=== PATIENT | female | born 1990 | race Caucasian/White ===

== ENCOUNTER 2022-01-18 12:06 | Observation (INO) | payer BC ==
--- OUTSIDE RECORDS SUMMARY | 2022-01-18 12:09 | XMS REPORT | Continuity of Care Document ---
:1990 Author Organization [facility] t Address [address] [place] [address] [address] [place] [address] Care Team Providers Name Role Phone Trinidad KAPLAN, Dany Villatoro Primary Care Physician [phone] Christine Chase MD Attending Clinician Alondra Contreras MA Attending Clinician Unavailable Chloe Beavers MA Attending Clinician Unavailable Jeanne KAPLAN, Shavonne Key Attending Clinician Partha RODRIGUEZ, Bartolo Attending Clinician Unavailable Doctor Unassigned, [place] Attending Clinician Unavailable [facility], [facility] Attending Clinician Unavailable MARIA A GONG Attending Clinician Unavailable Maria A Crenshaw Attending Clinician João Woody MD Attending Clinician JOÃO WOODY Attending Clinician Unavailable Payers Payer Name Policy Type Policy Number Effective Date Expiration Date [facility] - [id number] 2019 00:00:00 OUT OF STATE Problems Condition Condition Condition Status Onset Resolution Last Treating Co mments Source Name Details Category Date Date Treatment Clinician Date No known No known Disease Metho di active active st problems problems Hospit a l Allergies, Adverse Reactions, Alerts Allergy Allergy Status Severity Reaction(s) Onset Inactive Treating Comm ents Source Name Type Date Date Clinician NO KNOWN Drug Active Univers ALLERGIE Class ity of S [facility] Family History Family Member Diagnosis Comments Start Date Stop Date Source Natural father Cancer [facility] Natural father Diabetes [facility] Natural mother Diabetes [facility] Natural sister Diabetes [facility] Social History Social Habit Start Date Stop Date Quantity Comments Source Alcohol intake 2020-10-15 2020-10-15 Current [facility] 00:00:00 00:00:00 non-drinker of Hospital alcohol (finding) Tobacco use and 2016-09-15 2016-09-15 Smokeless tobacco [facility] exposure 00:00:00 00:00:00 non-user Hospital Sex Assigned At [birth year] [facility] 00:[facility]00 [facility] Smoking Status Start Date Stop Date Source Never smoked tobacco [facility] Medications Ordered Filled Start Stop Current Ordering Indication Dosage Frequency Signature Comments Components Source Medication Medication Date Date Medication? Clinician (SIG) Name Name metroNIDAZO 2020- No 500mg Q.5D Take 1 Me thodi LE (FlagyL) 5-25 06-[address] 500 MG 00:00: 04:59 (500 mg Hospita tablet 00 :00 total) by l mouth 2 (two) times a day for 7 days. drospirenon Yes [id number] 1{tbl} QD Take 1 Methodi e-ethinyl 5-[address] estradioL 00:00: mouth Hospita (JUAN DAVID) 00 daily. l 3-0.02 mg per tablet drospirenon 2020- No [id number] 1{tbl} QD Take 1 Methodi e-ethinyl 4-29 05-[address] estradioL 00:00: 00:00 mouth Hospit a (JUAN DAVID) 00 :00 daily. l 3-0.02 mg per tablet acetaminoph Yes TAKE TWO Me thodi en-caff-dih 27 (2) st ydrocod 00:00: CAPSULE(S) Hosp miky 320.5-30-16 00 BY MOUTH l mg capsule FOUR TIMES A DAY NEEDED. WAIT AT LEAST 4 HOURS BETWEEN DOSES. hydrOXYzine 2020- No 25mg Q6H Take 1 Met hodi (ATARAX) 25 4- 05-02 tablet (25 s t MG tablet 00:00: 04:59 mg total) Ho spita 00 :00 by mouth l every 6 (six) hours as needed for itching or allergies for up to 30 days. valACYclovi 2020- No 1000mg Q8H Take 1 M ethodi r (VALTREX) 08-[address] 1000 MG 00:00: 04:59 (1,000 mg Hosp miky tablet 00 :00 total) by l mouth every 8 (eight) hours for 7 days. methylPREDN 2020- No follow Met hodi ISolone 08-[address] (MEDROL 00:00: 04:59 directions Hos vince DOSEPAK) 4 00 :00 l mg tablet amitriptyli Yes 100mg QD Take 100 M ethodi ne (ELAVIL) 3-[address] 100 MG 00:00: mouth Hospita tablet 00 daily. l ondansetron Yes 4mg Take 4 mg M ethodi ODT 3-[address] (ZOFRAN-ODT 00:00: Hospit a ) 4 MG 00 l disintegrat ing tablet drospirenon 2020- No [id number] TAKE 1 Methodi e-ethinyl 06-[address] estradioL 00:00: 00:00 DAILY Hospit a (JUAN DAVID) 00 :00 l 3-0.02 mg per tablet clotrimazol 2020- No [id number] Q.5D Apply Methodi e-betametha 07-23-[address] sone 00:00: 05:59 2 (two) Hospita (LOTRISONE) 00 :00 times a l 1-0.05 % day. cream amitriptyli 2017-05- No 25mg Q.5D Take 25 mg Methodi ne (ELAVIL) 09-24 by mouth 2 s t 25 MG 00:00: 00:00 (two) Hospita tablet 00 :00 times a l day. esomeprazol 2017-05 Yes Method i e (NexIUM) 2-10 st 40 MG 00:00: Hospita capsule 00 l Immunizations Ordered Immunization Filled Immunization Date Status Commen ts Source Name Name Pfizer COVID-19 Vaccine Pfizer COVID-19 2021-04-01 Completed Vaccine 00:00:00 Pfizer COVID-19 Vaccine Pfizer COVID-19 2021-03-11 Completed Vaccine 00:00:00 Vital Signs Vital Name Observation Time Observation Value Comments Source Systolic blood 2020-10-15 20:19:00 124 mm[Hg] [facility] pressure Diastolic blood 2020-10-15 20:19:00 81 mm[Hg] [facility] pressure Heart rate 2020-10-15 20:19:00 76 /min [facility] Body height 2020-10-15 20:19:00 170.2 cm [facility] Body weight 2020-10-15 20:19:00 72.576 kg [facility] BMI 2020-10-15 20:19:00 25.06 kg/m2 [facility] Body temperature 2020-08-27 22:44:10 37 [facility] Respiratory rate 2020-08-27 22:44:10 14 /min [facility] Oxygen saturation in 2020-08-27 22:44:10 99 /min [facility] Arterial blood by Pulse oximetry Procedures Procedure Date / Time Performed Performing Clinician Sourc e THINPREP TIS PAP RFX 2020-10-15 20:44:00 Christine Chase [facility] HPV Plan of Care Planned Activity Planned Date Details Comments Source Future Scheduled 2021-03-31 Screening for [facility] Test 21:06:09 malignant neoplasm of cervix (procedure) [code = 719961289] Future Scheduled 2021-03-31 COVID-19 VACCINE [facility] Test 21:06:09 (1) [code = COVID-19 VACCINE (1)] Future Scheduled 2021-03-31 Hepatitis C [facility] ospital Test 21:06:09 screening (procedure) [code = 986843518] Future Scheduled 2021-03-31 INFLUENZA VACCINE Method [facility] Test 21:06:09 [code = INFLUENZA VACCINE] Encounters Start End Encounter Admission Attending Care Care Encounter Source Date/Time Date/Time Type Type Clinicians Facility Department ID 2021-04-01 2021-04-01 Outpatient GCCOVIDV GCCOVIDV [id number] GCCOVID 00:00:00 00:00:00 V 2021-03-11 2021-03-11 Outpatient GCCOVIDV GCCOVIDV [id number] [facility]OVID 00:00:00 00:00:00 V 2020-12-14 2020-12-14 Telephone Rena, 1.2.840.1 [id number] Methodi 00:00:00 00:00:[address] 3.430.2.7 Hospit a .3.814523 l .8 2020-10-20 2020-10-20 Telephone Alondra Contreras 1.2.840.1 [id number] Methodi 00:00:00 00:00:[address] 3.430.2.7 Hospit a .3.750896 l .8 2020-10-15 2020-10-15 Office Rena, 1.2.840.1 [id number] Methodi 15:17:33 15:53:46 Visit Christine 27908.1.[address] 3.430.2.7 Hospit a .3.083214 l .8 2020-09-24 2020-09-24 Telephone Nimesh, 1.2.840.1 [id number] Methodi 00:00:00 00:00:[address] 3.430.2.7 Hospit a .3.265441 l .8 2020-09-15 2020-09-15 Refill Rena, 1.2.840.1 [id number] Methodi 00:00:00 00:00:[address] 3.430.2.7 Hospit a .3.911205 l .8 2020-08-27 2020-08-27 Emergency [place], 1.2.840.1 [id number] [id number] Methodi 17:46:00 18:48:[address] Yasin [address]run [address]1.[address] 3.430.2.7 Hospit a .3.120524 l .8 2020-08-27 2020-08-27 Travel 1.2.840.1 1.2.066.133 [id number] Methodi 00:00:00 00:00:[address] 3.430.2.7 0.2.7.3.698 Ho spita .3.315513 084.8 l .8 2019-11-16 2019-11-16 Telephone EDWIGE Chavis 1.2.840.114 [id number] 00:00:00 00:00:00 Bartolo NAM 350.1.13.10 HOSPITAL 4.2.7.2.686 [id number] 2019-11-16 2019-11-16 Patient Doctor EDWIGE 1.2.840.114 [id number] 00:00:00 00:00:00 Secure Msg Unassigned, CYRIL 350.1.13.10 [place] [facility] 4.2.7.2.686 [id number] 2019-11-14 2019-11-14 Urgent Pob1, Acute [facility] 1.2.840.114 [id number] 13:49:55 14:36:36 [facility] 350.1.13.10 [place] 4.2.7.2.686 [facility] [id number] nal 044 [address] One 2019-11-14 2019-11-14 Outpatient [facility] [id number] [facility] [place] [facility] 14:00:00 14:00:00 [facility] 2019-11-14 2019-11-14 [facility] 1.2.840.114 [id number] 00:00:00 00:00:00 (Out) [facility] 350.1.13.10 [place] 4.2.7.2.686 [facility] [id number] nal 044 Office [address] 2019-11-11 2019-11-11 Emergency [facility] 1.2.166.769 [id number] 04:22:55 04:58:00 João Beaver 350.1.13.10 [place] 4.2.7.2.686 [place] [id number] 2019-11-11 2019-11-11 Emergency X [facility] [id number] Univers 04:22:55 04:22:55 JOÃO chester [facility] 2019-07-23 2019-07-23 Outpatient [facility] [id number] [address] [place] [address] 00:00:00 00:00:00 CHRISTINE Gallegos2 Metho di st Results Test Description Test Time Test Comments Results Result Sourc e Comments THINPREP TIS PAP 2020-09-27 Clinical Methodis t RFX HPV 5 informationComment: Hospi baby 14:53:00 None given[employer] Electric IIDate of last menstrual periodComment: NONE GIVENThe TechMapVING IIPrev. pap:Comment: NONE GIVENThe Filter-JOAN IIPrev. bx:Comment: NONE GIVENLone Mountain Electric IISourceComment: None givenIgnis Energy DIAGNOSTICS-JOAN IIStatement of adequacyComment: Satisfactory for evaluation.Endocervic al/transformation zone componentpresent.Age and/or menstrual status not provided [employer] IIInterpretation/resu lt:Comment: Negative for intraepithelial lesion or malignancy.[employer] IIInfectionComment: Shift in vaginal stephanie suggestive of bacterialvaginosis. [employer] IICommentComment: This Pap test has been evaluated with computerassisted technology. [employer] IICytotechnologistCom ment: LRW, CT(ASCP)CT screening location: [address] [employer] IICommentComment: EXPLANATORY NOTE: The Pap is a screening test for cervical cancer. It is not a diagnostic test and is subject to false negative and false positive results. It is most reliable when a satisfactory sample, regularly obtained, is submitted with relevant clinical findings and history, and when the Pap result is evaluated along with historic and current clinical information. [employer] IIPerforming Organization Information: Site ID: [id number] Name: [facility] Address: [address] [place] [id number] Director: Dr. Luiz Calles
[2022-01-18 13:27] LABS: Hematocrit 36.2 % (36.0-45.0); Lymphocytes % 13.2 % (15.3-44.8); MCV 80.9 fL (80-100); MPV 8.6 fL (7.6-11.3); RBC Red Blood Cell Count 4.47 M/uL (3.86-4.86)
[2022-01-18 13:42] LABS: Albumin 3.5 g/dL (3.4-5.0); Bilirubin Total 0.4 mg/dL (0.2-1.0); Potassium 3.8 mmol/L (3.5-5.1)
[2022-01-18] MEDS ORDERED: ONDANSETRON 4 MG/2 ML VIAL ONE ×2 (13:51→15:48)
[2022-01-18] MEDS ORDERED: MORPHINE 4 MG/ML SYR ONE (13:51)
[2022-01-18] MEDS ORDERED: NA CHLORIDE 0.9% 1,000 ML ONE ×2 (13:51→14:49)
[2022-01-18 14:06] LABS: Urine Blood Negative (Negative); Urine Glucose Negative (Negative); Urine Protein 1+ (Negative); Urine Specific Gravity 1.025 (1.005-1.030); Urine pH 6.5 (5.0-7.0)
[2022-01-18 14:16] LABS: Blood Morphology Comment NOT SEEN (NOT SEEN); Platelet Estimate ADEQ; Toxic Granulation 1+
--- NOTE | 2022-01-18 14:27 | RAD REPORT ---
EXAM DESCRIPTION: CTAbdomen Pelvis W Contrast - 01/18/2022 2:20 pm CLINICAL HISTORY: Abdominal pain. LLQ abdominal pain COMPARISON: No comparisons TECHNIQUE: Biphasic CT imaging of the abdomen and pelvis was performed with 100 ml non-ionic IV cont rast. All CT scans are performed using dose optimization technique as appropriate and may include automated exposure control or mA/KV adjustment according to patient size. FINDINGS: The lung bases are clear. The liver, spleen, pancreas, adrenal glands and kidneys are within normal limits. No bowel obstruction, free air, free fluid or abscess. The appendix appears enlarged to 14 mm with m ild surrounding inflammation. No evidence of significant lymphadenopathy. No suspicious bony findings. IMPRESSION: Acute appendicitis.
[2022-01-18 14:31] LABS: Urine Specific Gravity/Preg 1.025 (1.005-1.030)
--- NOTE | 2022-01-18 14:40 | ER ---
Nurse's Notes [facility] Name: Meaghan Johnston Age: 31 yrs Sex: Female : 1990 Arrival Date: 01/18/2022 Time: 12:10 Bed 2 Private MD: Diagnosis: Unspecified acute appendicitis Presentation: 01/18 12:19 Chief complaint: Patient states: abdominal pain that woke up pt out of sleep to [facility] \\T\\ 5 LLQ with 7 episodes of vomiting with 3-4 episodes diarrhea ; denies cough/cold/congestion/fever. Coronavirus screen: Vaccine status: Patient reports receiving the 2nd dose of the covid vaccine. Client denies travel out of the [place] in the last 14 days. Ebola Screen: Patient negative for fever greater than or equal to 101.5 degrees Fahrenheit, and additional compatible Ebola Virus Disease symptoms Patient denies exposure to infectious person. Patient denies travel to an Ebola-affected area in the 21 days before illness onset. Initial Sepsis Screen: Does the patient meet any 2 criteria? No. Patient's initial sepsis screen is negative. Does the patient have a suspected source of infection? No. Patient's initial sepsis screen is negative. Risk Assessment: Do you want to hurt yourself or someone else? Patient reports no desire to harm self or others. Onset of symptoms was January 18, 2022. 12:19 Method Of Arrival: Ambulatory [facility] 12:19 Acuity: SHAWN 3 5 Triage Assessment: 12:24 General: Appears uncomfortable, Behavior is calm, cooperative, appropriate for age. [facility] Pain: Complains of pain in abdomen. GI: Reports lower abdominal pain, cramping, diarrhea, nausea, vomiting. 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 - Social history:: Patient uses street drugs, marijuana, Smoking status: . Screenin:25 Abuse screen: Denies threats or abuse. Denies injuries from another. [facility] 13:39 Nutritional screening: No deficits noted. Tuberculosis screening: No symptoms or risk tw2 factors identified. Fall Risk None identified. Assessment: 13:29 Reassessment: MIN Ty notified of critical lab value. WBC 22.3. ss 14:05 Reassessment: No changes from previously documented assessment. Patient and/or family tw2 updated on plan of care and expected duration. Pain level reassessed. Patient is alert, oriented x 3, equal unlabored respirations, skin warm/dry/pink. pt c/o pain w/ mvmt. Patient states symptoms have not improved. 14:54 Reassessment: No changes from previously documented assessment. Patient and/or family tw2 updated on plan of care and expected duration. Pain level reassessed. Patient is alert, oriented x 3, equal unlabored respirations, skin warm/dry/pink. 16:00 Reassessment: No changes from previously documented assessment. Patient and/or family tw2 updated on plan of care and expected duration. Pain level reassessed. Patient is alert, oriented x 3, equal unlabored respirations, skin warm/dry/pink. 17:02 Reassessment: No changes from previously documented assessment. Patient and/or family tw2 updated on plan of care and expected duration. Pain level reassessed. Patient is alert, oriented x 3, equal unlabored respirations, skin warm/dry/pink. 18:09 Reassessment: No changes from previously documented assessment. Patient and/or family tw2 updated on plan of care and expected duration. Pain level reassessed. Patient is alert, oriented x 3, equal unlabored respirations, skin warm/dry/pink. 18:10 GI: na na. tw2 Vital Signs: 12:19 BP 115 / 83; Pulse 110; Resp 20; Temp 98.9; Pulse Ox 100% ; Weight 77.11 kg; Height 5 jh5 ft. 7 in. (170.18 cm); Pain 10/10; 14:04 BP 132 / 84; Pulse 102; Resp 19; Pulse Ox 99% on R/A; Pain 4/10; tw2 14:52 Pain 4/10; tw2 14:53 BP 133 / 97; Pulse 127; Resp 18; Pulse Ox 97% on R/A; tw2 16:00 BP 118 / 79; Pulse 84; Resp 17; Pulse Ox 100% on R/A; tw2 17:02 BP 112 / 72; Pulse 87; Resp 17; Pulse Ox 100% on R/A; tw2 18:09 BP 102 / 60; Pulse 82; Resp 16; Pulse Ox 100% on R/A; tw2 12:19 Body Mass Index 26.63 (77.11 kg, 170.18 cm) jh5 14:53 pt is crying at this time, states "i am just anxious im sure" regarding the surgery she tw2 just was told she needed ED Course: 12:10 Patient arrived in ED. rg4 12:18 Karson De Jesus NP is PHCP. pm1 12:18 Rony Almeida MD is Attending Physician. pm1 12:23 Triage completed. jh5 12:24 Arm band placed on right wrist. jh5 13:12 Flu Sent. jh5 13:12 COVID-19 SARS RT PCR (Document "Date of Onset" if Symptomatic) Sent. jh5 13:12 CBC with Diff Sent. jh5 13:12 CMP Sent. jh5 13:13 Lipase Sent. jh5 13:13 Inserted saline lock: 20 gauge in right antecubital area, using aseptic technique. jh5 13:39 Opal Srivastava, RN is Primary Nurse. tw2 13:39 Bed in low position. Call light in reach. Pulse ox on. NIBP on. tw2 14:22 CT Abd/Pelvis - IV Contrast Only In Process Unspecified. EDMS 14:40 Herson Olson MD is Hospitalizing Provider. pm1 18:09 No provider procedures requiring assistance completed. Patient admitted, IV remains in tw2 place. Administered Medications: 13:49 Drug: NS 0.9% 1000 ml Route: IV; Rate: 1 bolus; Site: right antecubital; tw2 15:46 Follow up: Response: No adverse reaction; IV Status: Completed infusion; IV Intake: tw2 1000ml 13:55 Drug: Zofran (Ondansetron) 4 mg Route: IVP; Site: right antecubital; tw2 14:52 Follow up: Response: No adverse reaction tw2 13:58 Drug: morphine 4 mg {Note: RASS 0.} Route: IVP; Infused Over: 4 mins; Site: right tw2 antecubital; 14:52 Follow up: Pain 4/10 Adult; Response: No adverse reaction; Pain is decreased; RASS: tw2 Alert and Calm (0) 14:52 Drug: Zosyn (piperacillin-tazobactam) 3.375 grams Route: IVPB; Infused Over: 60 mins; tw2 Site: right antecubital; 15:57 Follow up: Response: No adverse reaction; IV Status: Completed infusion; IV Intake: tw2 100ml 14:52 Drug: NS 0.9% 1000 ml Route: IV; Rate: 125 ml/hr; Site: right antecubital; tw2 18:09 Follow up: IV Status: Infusion continued upon admission tw2 Medication: 13:40 VIS not applicable for this client. tw2 Intake: 15:46 IV: 1000ml; Total: 1000ml. tw2 15:57 IV: 100ml; Total: 1100ml. tw2 Outcome: 14:40 Decision to Hospitalize by Provider. pm1 18:09 Admitted to OR accompanied by nurse, via wheelchair, Report called to MICHAEL Biswas OR tw2 18:09 Condition: stable 18:09 Instructed on the need for admit. 18:21 Patient left the ED. tw2 Signatures: Dispatcher [employer] EDMS Lisa Mccarthy RN RN ss Karson De Jesus, POACHER OPERATOR POACHER OPERATOR pm1 Opal Srivastava RN RN tw2 Charisse Bowie rg4 Kelsy Sandoval RN RN jh5
--- NOTE | 2022-01-18 14:41 | EDPHYS ---
Physician Documentation [facility] Name: Meaghan Johnston Age: 31 yrs Sex: Female : 1990 Arrival Date: 01/18/2022 Time: 12:10 Bed 2 Private MD: ED Physician Rony Almeida HPI: 01/18 12:26 This 31 yrs old Female presents to ER via Ambulatory with complaints of Abdominal Pain, pm1 Vomiting/Diarrhea. 12:26 The patient presents with abdominal pain in the lower abdomen. Onset: The pm1 symptoms/episode began/occurred this morning. The symptoms do not radiate. Associated signs and symptoms: Pertinent positives: nausea, vomiting, and diarrhea, Pertinent negatives: chest pain, shortness of breath. The symptoms are described as crampy, sharp. Modifying factors: The symptoms are alleviated by nothing, the symptoms are aggravated by nothing. Severity of pain: in the emergency department the pain is actually worse. The patient has not experienced similar symptoms in the past. The patient has not recently seen a physician. 31-year-old female presents to the ER with complaints of lower abdominal pain. Patient reports pain woke her up this morning. Patient positive for nausea, vomiting, diarrhea. 6-7 episodes of vomiting, 4-5 episodes of diarrhea. Patient denies any blood in her vomiting or diarrhea. INTERN ARCHITECT: 12:24 LMP 12/20/2021 [facility] Historical: - Allergies: 12:23 No Known Allergies; [facility] - PMHx: 12:24 Depressive disorder; [facility] - Immunization history:: Adult Immunizations up to date. - Social history:: Patient uses street drugs, marijuana, Smoking status: . ROS: 12:26 Constitutional: Negative for fever, chills, and weight loss, Cardiovascular: Negative pm1 for chest pain, palpitations, and edema, Respiratory: Negative for shortness of breath, cough, wheezing, and pleuritic chest pain. 12:26 Back: Negative for injury and pain, : Negative for injury, bleeding, discharge, and swelling, MS/Extremity: Negative for injury and deformity, Skin: Negative for injury, rash, and discoloration, Neuro: Negative for headache, weakness, numbness, tingling, and seizure. 12:26 Abdomen/GI: Positive for abdominal pain, nausea, vomiting, and diarrhea, of the right lower quadrant and left lower quadrant, Negative for constipation. 12:26 All other systems are negative. Exam: 12:26 Constitutional: This is a well developed, well nourished patient who is awake, alert, pm1 and in no acute distress. Head/Face: Normocephalic, atraumatic. 12:26 Back: No spinal tenderness. No costovertebral tenderness. Full range of motion. Skin: Warm, dry with normal turgor. Normal color with no rashes, no lesions, and no evidence of cellulitis. MS/ Extremity: Pulses equal, no cyanosis. Neurovascular intact. Full, normal range of motion. 12:26 Cardiovascular: Exam negative for acute changes, Rate: tachycardic, Rhythm: regular, Pulses: no pulse deficits are appreciated. 12:26 Respiratory: Exam negative for acute changes, respiratory distress, shortness of breath, Breath sounds: are clear throughout. 12:26 Abdomen/GI: Inspection: abdomen appears normal, Palpation: soft, in all quadrants, moderate abdominal tenderness, in the right lower quadrant and left lower quadrant. 12:26 Neuro: Exam negative for acute changes, Orientation: is normal, Mentation: is normal, Motor: is normal, moves all fours. Vital Signs: 12:19 BP 115 / 83; Pulse 110; Resp 20; Temp 98.9; Pulse Ox 100% ; Weight 77.11 kg; Height 5 jh5 ft. 7 in. (170.18 cm); Pain 10/10; 14:04 BP 132 / 84; Pulse 102; Resp 19; Pulse Ox 99% on R/A; Pain 4/10; tw2 14:52 Pain 4/10; tw2 14:53 BP 133 / 97; Pulse 127; Resp 18; Pulse Ox 97% on R/A; tw2 16:00 BP 118 / 79; Pulse 84; Resp 17; Pulse Ox 100% on R/A; tw2 17:02 BP 112 / 72; Pulse 87; Resp 17; Pulse Ox 100% on R/A; tw2 18:09 BP 102 / 60; Pulse 82; Resp 16; Pulse Ox 100% on R/A; tw2 12:19 Body Mass Index 26.63 (77.11 kg, 170.18 cm) jh5 14:53 pt is crying at this time, states "i am just anxious im sure" regarding the surgery she tw2 just was told she needed MDM: 12:28 Patient medically screened. pm1 14:35 Counseling: I had a detailed discussion with the patient and/or guardian regarding: the pm1 historical points, exam findings, and any diagnostic results supporting the discharge/admit diagnosis, lab results, radiology results, the need for further work-up and treatment in the hospital. 14:38 Data reviewed: vital signs. Data interpreted: Pulse oximetry: on room air is 99 %. pm1 Interpretation: normal. 14:38 Physician consultation: Herson Olson MD was called at 14:38, was contacted at 14:38, pm1 regarding admission, patient's condition, and will see patient in ED, in OR, shortly. 01/18 12:26 Order name: CBC with Diff; Complete Time: 14:19 pm1 01/18 12:26 Order name: CMP; Complete Time: 13:52 pm1 01/18 12:26 Order name: Lipase; Complete Time: 13:52 pm1 01/18 12:26 Order name: Flu; Complete Time: 13:52 pm1 01/18 12:26 Order name: COVID-19 SARS RT PCR (Document "Date of Onset" if Symptomatic); Complete pm1 Time: 14:21 01/18 14:07 Order name: Urine Dipstick-Ancillary; Complete Time: 14:09 EDMS 01/18 12:26 Order name: CT Abd/Pelvis - IV Contrast Only; Complete Time: 14:29 pm1 01/18 14:12 Order name: Urine --Ancillary (enter results); Complete Time: 14:35 bd 01/18 14:16 Order name: Manual Differential; Complete Time: 14:19 EDMS 01/18 12:26 Order name: IV Saline Lock; Complete Time: 13:12 pm1 01/18 12:26 Order name: Labs collected and sent; Complete Time: 13:12 pm1 01/18 12:26 Order name: Urine Dipstick-Ancillary (obtain specimen); Complete Time: 14:04 pm1 01/18 12:26 Order name: Urine Test (obtain specimen); Complete Time: 14:04 pm1 01/18 14:34 Order name: NPO; Complete Time: 18:09 pm1 Administered Medications: 13:49 Drug: NS 0.9% 1000 ml Route: IV; Rate: 1 bolus; Site: right antecubital; tw2 15:46 Follow up: Response: No adverse reaction; IV Status: Completed infusion; IV Intake: tw2 1000ml 13:55 Drug: Zofran (Ondansetron) 4 mg Route: IVP; Site: right antecubital; tw2 14:52 Follow up: Response: No adverse reaction tw2 13:58 Drug: morphine 4 mg {Note: RASS 0.} Route: IVP; Infused Over: 4 mins; Site: right tw2 antecubital; 14:52 Follow up: Pain 4/10 Adult; Response: No adverse reaction; Pain is decreased; RASS: tw2 Alert and Calm (0) 14:52 Drug: Zosyn (piperacillin-tazobactam) 3.375 grams Route: IVPB; Infused Over: 60 mins; tw2 Site: right antecubital; 15:57 Follow up: Response: No adverse reaction; IV Status: Completed infusion; IV Intake: tw2 100ml 14:52 Drug: NS 0.9% 1000 ml Route: IV; Rate: 125 ml/hr; Site: right antecubital; tw2 18:09 Follow up: IV Status: Infusion continued upon admission tw2 Disposition: 01/19 10:29 Co-signature as Attending Physician, Rony Almeida MD I agree with the assessment and kdr plan of care. Disposition Summary: 01/18/22 14:40 Hospitalization Ordered Hospitalization Status: Inpatient Admission pm1 Provider: Herson Olson pm1 Location: Telemetry/[facility] (Inpatient) pm1 Condition: Stable pm1 Problem: new pm1 Symptoms: have improved pm1 Bed/Room Type: Standard pm1 Room Assignment: pm1 Diagnosis - Unspecified acute appendicitis pm1 Forms: - Medication Reconciliation Form pm1 - SBAR form pm1 Signatures: Dispatcher [employer] EDRony Mcdonald MD MD kdr Marinas, Patrick, NP WEED ERADICATOR pm1 Opal Srivastava RN RN tw2 Kelsy Sandoval RN RN jh5
[2022-01-18] MEDS ORDERED: NA CHLORIDE 0.9% 100 ML ONE (14:50)
[2022-01-18] MEDS ORDERED: PIPERACIL/TAZO 3.375 GM VIAL IV ONE (14:50)
[2022-01-18] MEDS ORDERED: MIDAZOLAM HCL 2 MG/2 ML INJ ONE (15:46)
[2022-01-18] MEDS ORDERED: FENTANYL CITR 100 MCG/2 ML ONE (15:46)
[2022-01-18] MEDS ORDERED: propofoL 200 MG/20 ML VIAL IV ONE (15:46)
[2022-01-18] MEDS ORDERED: LIDOCAINE 1% MPF 5 ML VIAL ONE (15:46)
[2022-01-18] MEDS ORDERED: GLYCOPYRROLATE 0.2 MG/ML SYR ONE (15:47)
[2022-01-18] MEDS ORDERED: dexAMETHasone 4 MG/ML VIAL ONE (15:47)
[2022-01-18] MEDS ORDERED: KETOROLAC 30 MG/ML INJ ONE (15:48)
[2022-01-18] MEDS ORDERED: NEOSTIGMINE 1 MG/ML -10 ML VIAL ONE (15:48)
[2022-01-18] MEDS ORDERED: ROCURONIUM 50 MG/5 ML VIAL IV ONE (15:57)
[2022-01-18] MEDS: MORPHINE 4 MG/ML SYR IV PRN (16:15)
[2022-01-18] MEDS ORDERED: Ringers Lactate 1,000 ML IV ONE (18:28)
--- NOTE | 2022-01-18 18:59 | P.HP ---
Date of Service: 01/18/22 PC: This 31-year-old female presents to the emergency room with severe right lower quadrant abdominal pain for diagnosis and treatment. HPC: Patient woke up this morning with severe abdominal pain. Over the course of the morning pain intensified and gradually got to the point where she could no longer stand it. Causing her lots of diarrhea, nausea, and pain even when she walks. PSHx: Urological procedure as a child, left kidney. PMHx: Fibromyalgia, depression Social Hx: No known allergies Sys R: No cough, wheeze, shortness of breath. No chest pain or palpitations. Denies any urinary complaints O/E: Awake alert uncomfortable HEENT: Not jaundiced Chest: Chest movement equal bilaterally Abd: Tender with guarding in the right lower quadrant [place]: Intact Data: Elevated white cell count, CT supports clinical diagnosis of acute abdomen with appendicitis Impression: Acute abdomen with appendicitis Plan: I will take her to the operating room for laparoscopic possible open appendectomy. The risks of this procedure have been discussed. The possibility of bleeding, infection, injury to bowel blood vessels and surrounding structures were outlined. The possible need for an open and/or further surgeries and procedures was discussed. She understands and wants us to proceed.
--- NOTE | 2022-01-18 19:59 | P.OP ---
Preoperative diagnosis: Acute abdomen with appendicitis Postoperative diagnosis: The same Primary procedure: Laparoscopic appendectomy Secondary procedure: Tap block Anesthesia: General Estimated blood loss: Less than 10 cc Specimen: 1 appendix Operative Technique: The patient brought the operating room and placed supine on the table. After the induction of adequate general endotracheal anesthesia, the area of the abdomen was prepped with a DuraPrep solution, she was draped in usual aseptic manner. A subumbilical incision was made. This was brought down through the skin and s ubcutaneous tissue. The Visiport was now used to enter the peritoneal cavity and created pneumoperitoneum to approximately 12 mmHg. Under direct vision a 5 mm trocar was placed in the right upper quadrant, and another in the lower midline. With the patient placed in reverse Trendelenburg and tilted towards the left we were able to visualize the right lower quadrant. We could see along acutely inflamed appendix. The appendix was grasped and elevated. A window was made in the mesentery of the appendix just at its junction with the cecum. This area having been cleared, the 10 mm trocar was converted to a 12. The linear stapler was now introduced into the peritoneal cavity placed across the base of the appendix at its junction with the cecum and fired. A vascular reload was used to take down the mesentery of the appendix. The specimen was placed into an Endo Catch and brought out through the umbilical trocar site. Attention was turned back towards our operative site. Adequate hemostasis was insured. A small amount of bleeding through the suture line had stopped. This was aspirated using the suction catheter. Attention was now turned towards the anterior abdominal wall. A bilateral tap block was done using 0.25% Marcaine. Attention was now turned towards the umbilicus. The Endo Close was used to place an absorbable suture to reapproximate the fascial defect. At this point the trochars were removed, the pneumoperitoneum collapsed, and the suture tied. The skin was now closed with leesa. At the end of the procedure the patient was in a stable condition when sent to the recovery room. Needle sponge instrument count were correct. No drains were placed. Complications: None Transferred to: Recovery Room Condition: Good
[2022-01-18] MEDS: MEPERIDINE HCL 25 MG/ML SYR ONE ×2 (20:01→20:06)
[2022-01-18] MEDS: MIDAZOLAM HCL 2 MG/2 ML INJ ONE ×2 (20:04→20:30)
[2022-01-18] MEDS ORDERED: ONDANSETRON 4 MG/2 ML VIAL IV PRN (20:14)
[2022-01-18] MEDS: HYDROMORPHONE HCL 1 MG/ML INJ ONE ×2 (20:19→20:27)
[2022-01-18 20:21] VITALS: O2SAT 100
[2022-01-18 22:14] VITALS: BMI 26.6
[2022-01-19] MEDS: PIPER TAZO 3.375 GM in NA CHLORIDE 0.9% 100 ML IV SCH ×2 (00:46→08:28)
[2022-01-19] MEDS: MORPHINE 4 MG/ML SYR IV PRN (02:52)
[2022-01-19 08:01] VITALS: TEMP 97.2
[2022-01-19] MEDS: HYDROCODONE/APAP 7.5/325 MG TAB PO PRN ×2 (08:27→14:20)
--- NOTE | 2022-01-19 14:28 | P.PN ---
Date of Service: 01/19/22 S: Patient feels better, still having some abdominal wall pain. O: Vital signs are stable, incisions are clean. A: Surgically stable status post laparoscopic appendectomy P: Discharge home, see me next week. Any questions or problems, return to the emergency room or contact me.
[2022-01-19 18:18] VITALS: BP 113/73
== END 2022-01-19 18:22 | disposition home or self-care (01) ==
LOC: ER 12:06 → ERHOLD 14:46 → INTOOBSV 14:46 → 2ND 19:56
PROVIDERS: ADMIT Surgery; ATTEND Surgery
PROC: 0DTJ4ZZ Resection of Appendix, Percutaneous Endoscopic Approach (ICD-10-PCS; principal; 2022-01-18 17:00)
DX: K35.80 Unspecified acute appendicitis (principal); M79.7 Fibromyalgia; F32.A Depression, unspecified; F12.90 Cannabis use, unspecified, uncomplicated; Z20.822 Contact with and (suspected) exposure to COVID-19
CPT/HCPCS: 96365; 96361; 85025; 36415; 81025; 88304; 81003; 83690; 80053; 87804 ×2; 74177; 94010; 96375; 99285; 44970; U0003; Q9967; J2704; J1100; J2710; J2543 ×3; J2250 ×2; J3010; J2175; J1170; J7120; J7030 ×2; J2405 ×2; G0378